=== PATIENT | female | born 1970 | race Caucasian/White ===

== ENCOUNTER 2018-02-24 07:58 | Outpatient (CLI) | payer OTHER | END 2018-02-24 07:59 | disposition home or self-care (01) | LOC: BICMAMMO 07:58 | PROVIDERS: ATTEND Specialist | DX: Z12.31 Encounter for screening mammogram for malignant neoplasm of breast (principal) | CPT/HCPCS: 77063; 77067 ==

== ENCOUNTER 2019-02-25 08:35 | Outpatient (CLI) | payer OTHER ==
--- NOTE | 2019-02-25 09:17 | MMO ---
Bilateral MAMMO Bilat Screen [facility]. CLINICAL HISTORY: Patient is 48 years old and is seen for screening. The patient has no family history of breast cancer. The patient has no personal history of cancer. VIEWS: The views performed were: bilateral craniocaudal with tomosynthesis; bilateral mediolateral oblique with tomosynthesis; and bilateral exaggerated craniocaudal. FILMS COMPARED: The present examination has been compared to prior imaging studies performed at [facility] on 12/13/2014, 01/17/2016, 01/17/2017 and 02/24/2018. MAMMOGRAM FINDINGS: The breasts are extremely dense, which may lower the sensitivity of mammography. Benign calcifications are noted bilaterally. There are no suspicious masses, suspicious calcifications, or new areas of architectural distortion. IMPRESSION: THERE IS NO MAMMOGRAPHIC EVIDENCE OF MALIGNANCY. A ROUTINE FOLLOW-UP MAMMOGRAM IN 1 YEAR IS RECOMMENDED. THE RESULTS OF THIS EXAM WERE SENT TO THE PATIENT. ACR BI-RADS Category 2 - Benign finding MAMMOGRAPHY NOTE: 1. A negative mammogram report should not delay a biopsy if a dominant of clinically suspicious mass is present. 2. Approximately 10% to 15% of breast cancers are not detected by mammography. 3. Adenosis and dense breasts may obscure an underlying neoplasm.
--- NOTE | 2019-02-25 09:33 | BD ---
DEXA BONE DENSITY STUDY: HISTORY: Menopausal state. FINDINGS: Lumbar Spine: BMD (g/cm2) L1 1.080 T-Score: +0.8 L2 1.187 T-Score: +1.4 L3 1.249 T-Score: +1.5 L4 1.184 T-Score: +1.1 L1-L4 1.178 T-Score: +1.2 Within normal limits with no increased risk for fracture. Femoral Neck: 0.827 T-Score: -0.2 Total Femur: 1.093 T-Score: +1.2 Within normal limits with no increased risk for fracture. FRAX score not recorded because all T-scores at or above -1.0. POS: [facility]
== END 2019-02-25 08:36 | disposition home or self-care (01) ==
LOC: BICMAMMO 08:35
PROVIDERS: ATTEND Specialist
DX: Z12.31 Encounter for screening mammogram for malignant neoplasm of breast (principal); M81.0 Age-related osteoporosis without current pathological fracture; M85.80 Other specified disorders of bone density and structure, unspecified site
CPT/HCPCS: 77063; 77067; 77080

== ENCOUNTER 2019-10-12 13:16 | Outpatient (CLI) | payer OTHER ==
--- NOTE | 2019-10-12 13:48 | RAD ---
Exam:3 views right foot HISTORY: Pain. COMPARISON: None FINDINGS: Lisfranc alignment is maintained. No fracture, cortical irregularity or periosteal reaction . Minimal degenerative change in the first metatarsal phalangeal joint space and talonavicular joint space. IMPRESSION: Unremarkable 3 views right foot
--- NOTE | 2019-10-12 14:04 | RAD ---
1RIGHT HEEL 2 VIEWS: Date: 10/12/2019 HISTORY: Acute pain with certain movements. FINDINGS: Small calcaneal plantar enthesophyte. No fracture, dislocation, or other acute process. IMPRESSION: Small plantar enthesophyte. POS: [facility]
== END 2019-10-12 13:17 | disposition home or self-care (01) ==
LOC: BICRAD 13:16
PROVIDERS: ATTEND Podiatrist
DX: M79.671 Pain in right foot (principal); M77.51 Other enthesopathy of right foot and ankle

== ENCOUNTER 2020-03-07 14:53 | Outpatient (CLI) | payer OTHER ==
--- NOTE | 2020-03-07 16:27 | MMO ---
Bilateral MAMMO Bilat Screen [facility]. CLINICAL HISTORY: Patient is 49 years old and is seen for screening. The patient has no family history of breast cancer. The patient has no personal history of cancer. VIEWS: The views performed were: bilateral craniocaudal with tomosynthesis and bilateral mediolateral oblique with tomosynthesis. FILMS COMPARED: The present examination has been compared to prior imaging studies performed at [facility] on 01/17/2016, 01/17/2017, 02/24/2018 and 02/25/2019. This study has been interpreted with the assistance of computer-aided detection. MAMMOGRAM FINDINGS: The breasts are extremely dense, which may lower the sensitivity of mammography. There are benign appearing calcifications seen in both breasts. There are no suspicious masses, suspicious calcifications, or new areas of architectural distortion. IMPRESSION: THERE IS NO MAMMOGRAPHIC EVIDENCE OF MALIGNANCY. A ROUTINE FOLLOW-UP MAMMOGRAM IN 1 YEAR IS RECOMMENDED. THE RESULTS OF THIS EXAM WERE SENT TO THE PATIENT. ACR BI-RADS Category 2 - Benign finding MAMMOGRAPHY NOTE: 1. A negative mammogram report should not delay a biopsy if a dominant of clinically suspicious mass is present. 2. Approximately 10% to 15% of breast cancers are not detected by mammography. 3. Adenosis and dense breasts may obscure an underlying neoplasm. Reported by: FAITH LEGER MD Electonically Signed: [id number]
== END 2020-03-07 14:54 | disposition home or self-care (01) ==
LOC: BICMAMMO 14:53
PROVIDERS: ATTEND Specialist
DX: Z12.31 Encounter for screening mammogram for malignant neoplasm of breast (principal)
CPT/HCPCS: 77063; 77067